=== PATIENT | female | born 1945 | race African-American/Black ===

== ENCOUNTER → 2016-05-28 | Outpatient (CLI) | payer MEDICARE ==
[~2016-05-28] MED LIST: BARIUM SULFATE 105% 1,900 ML SUSP PO ONE
--- NOTE | 2016-05-28 16:42 | RAD ---
Indication incomplete colonoscopy. Suspect stricture involving the sigmoid colon. A preliminary film of the abdomen and into space and of a single contrast barium enema was performed. Air is seen throughout the large bowel compatible with the history of recent attempted colonoscopy. Thin barium was introduced through the rectum. Multiple areas of curvature in the sigmoid colon are identified. Multiple diverticula are seen. A strictured segment in the sigmoid colon is not apparent. The large bowel is quite redundant. Occasional diverticula are seen in the descending colon. No significant diverticular disease is seen in the transverse or ascending colon. A definite strictured segment was not seen. The appendix was eventually filled. There was not good evacuation of the barium but no definite additional abnormality is seen on the postevacuation films. Fluoroscopy time associated with the examination was 5.7 minutes. 17 spot fluoroscopic images were obtained IMPRESSION: Redundant colon. Moderately extensive sigmoid diverticulosis. No definite constricting lesion or mass seen. If further evaluation is warranted CT: On mammography may be useful.
== END | disposition home or self-care (01) ==
LOC: RAD 15:02
PROVIDERS: ATTEND Internal Medicine Gastroenterology
DX: Z91.19 Patient's noncompliance with other medical treatment and regimen (principal)
CPT/HCPCS: 74270

== ENCOUNTER → 2017-03-07 | Outpatient (CLI) | payer MEDICARE ==
--- NOTE | 2017-03-08 09:48 | RAD ---
DATE: 03/07/2017 EXAM: DIGITAL SCREEN BILAT W/CAD HISTORY: Routine screening COMPARISON: 03/03/2016 This study was interpreted with the benefit of Computerized Aided Detection (CAD). The breast parenchyma is heterogeneously dense, which could reduce sensitivity of mammography. Breast parenchyma level C. FINDINGS: No new or enlarging breast densities are seen. No suspicious microcalcifications have developed. IMPRESSION: Stable mammograms without evidence of malignancy. BI-RADS CATEGORY: 2 BENIGN FINDING(S) RECOMMENDED FOLLOW-UP: 12M 12 MONTH FOLLOW-UP PQRS compliance statement: Patient information was entered into a reminder system with a target due date for the next mammogram. Mammography is a sensitive method for finding small breast cancers, but it does not detect them all and is not a substitute for careful clinical examination. A negative mammogram does not negate a clinically suspicious finding and should not result in delay in biopsying a clinically suspicious abnormality. "Our facility is accredited by the [employer] Mammography [employer]."
== END | disposition home or self-care (01) ==
LOC: MAMMO 14:42
PROVIDERS: ATTEND Family Medicine
DX: Z12.31 Encounter for screening mammogram for malignant neoplasm of breast (principal)
CPT/HCPCS: G0202; 77067

== ENCOUNTER → 2019-11-07 | Outpatient (CLI) | payer MEDICARE ==
--- NOTE | 2019-11-07 16:41 | KCIC ---
Bilateral digital screening mammograms with 3-D tomosynthesis: Reason for examination: Routine screening. Comparison is made to previous studies dated back to 12/13/2013. Bilateral mammograms in CC and oblique projections were obtained with 2-D imaging and 3-D tomosynthesis imaging on a Siemens Inspiration unit and reviewed on the workstation. Interpretation was made with the benefit of CAD. The skin and nipples show no abnormalities. No abnormal axillary lymph nodes are seen. The breast parenchyma is heterogeneously dense. (Breast density: Category C.) There are small benign-appearing nodular densities seen in the left breast which are stable. There are no new dominant masses, suspicious calcifications or architectural distortion. Impression: No evidence of malignancy. Recommend routine screening. Your patient's mammogram demonstrates that she has dense breast tissue (breast density category C or D), which could hide abnormalities, and if she has other risk factors for breast cancer that have been identified, she might benefit from supplemental screening tests that may be suggested by you as her ordering physician. Dense breast tissue, in and of itself, is a relatively common condition. Therefore, this information is not provided to cause undue concern, but rather to raise your awareness and to promote discussion with your patient regarding the presence of other risk factors, in addition to dense breast tissue. Your patient's mammography results will be sent to her. BI-RAD Category 2: Benign. "Our facility is accredited by the [employer] Mammography [employer]." This patient's information has been entered into a reminder system for the patient to be notified with the results of her examination and a target date for the next mammogram. Electronically signed by: Margarette Aleman MD (11/07/2019 4:38 PM) [id number]
== END | disposition home or self-care (01) ==
LOC: KCIC MAMMO 08:05
DX: Z12.31 Encounter for screening mammogram for malignant neoplasm of breast (principal)
CPT/HCPCS: 77063; 77067

== ENCOUNTER → 2021-01-07 | Outpatient (CLI) | payer MEDICARE ==
--- NOTE | 2021-01-07 14:25 | KCIC ---
Procedure: Diagnostic bilateral 2-D and 3-D (digital breast tomosynthesis) mammogram with CAD INDICATION: Generalized tenderness and enlargement of left breast for 3 to 4 months. COMPARISON: Mammograms from 11/07/2019, 03/07/2017 and 03/03/2016. FINDINGS: Breast density: Category B. There are scattered areas of fibroglandular density. No suspicious breast mass, malignant appearing calcifications, or architectural distortion is seen. T here has been no significant change since the previous mammograms. IMPRESSION: Negative bilateral mammogram. ASSESSMENT: BI-RADS 1. Negative. Recommendations: Routine screening mammograms. This patient's information has been entered into a reminder system for the patient to be notified wit h the results of her examination and a target date for the next mammogram. Electronically signed by: Beata Mendoza MD (01/07/2021 2:22 PM) [email or web address]
== END ==
LOC: KCIC MAMMO 12:45
PROVIDERS: ATTEND Student in an Organized Health Care Education/Training Program
DX: Q83.9 Congenital malformation of breast, unspecified (principal); R92.2 Inconclusive mammogram
CPT/HCPCS: 77066; G0279; 77062